=== PATIENT | male | born 1950 | race Hispanic/Latino ===

== ENCOUNTER 2017-09-30 08:32 | Emergency (ER) | payer MEDICARE, BC ==
[2017-09-30 08:38] VITALS: TEMP 98
[2017-09-30 08:49] VITALS: BMI 30.4
[2017-09-30] MEDS ORDERED: Iohexol 240 (50 ml) PO ONE (09:22)
[2017-09-30] MEDS ORDERED: Sodium Chloride 0.9% 1,000 ML IV ONE (09:23)
--- NOTE | 2017-09-30 09:31 | ED PDOC ---
HPI: General Adult Time Seen by Provider: 09/30/17 09:07 Chief Complaint (Nursing): GI Problem History Per: Patient History/Exam Limitations: no limitations Current Symptoms Are (Timing): Still Present Additional Complaint(s): 67 year old male presents to the emergency department with a complaint of a gross bright red blood in stool per rectum after he woke up today, 09/30/2017. States symptoms were mild then and mild now. Reports he had never experienced these symptoms in the past. Denies pain, nausea, vomiting, diarrhea, black stool , chest pain, or shortness of breath. Patient lives at home with his family and does not smoke or drink. PMD: Dr. Nikolay López MD Past Medical History Reviewed: Historical Data, Nursing Documentation, Vital Signs Vital Signs: Last Vital Signs Temp 98 F 09/30/17 08:37 Pulse 70 09/30/17 08:37 Resp BP 151/69 H 09/30/17 08:37 Pulse Ox 96 09/30/17 14:51 - Medical History PMH: Benign Prostatic Hyperplasia, CAD, HTN, Hypercholesterolemia Denies: HIV, Chronic Kidney Disease - Surgical History Surgical History: Appendectomy, Hernia Repair (right inguinal) - Family History Family History: States: Unknown Family Hx - Home Medications Home Medications: Ambulatory Orders Medication Instructions Recorded Acetaminophen with Codeine 1 tab PO Q6 PRN #20 tab 10/14/14 [Tylenol with Codeine No. 3 300 mg-30 mg] Cephalexin [Keflex] 500 mg PO QID #28 cap 10/14/14 Aspirin [Aspirin EC] 81 mg PO DAILY 10/19/14 Atorvastatin [Lipitor] 40 mg PO DAILY 10/19/14 Clopidogrel Bisulfate [Clopidogrel] 75 mg PO DAILY 10/19/14 Dutasteride [Avodart] 0.5 mg PO DAILY 10/19/14 Magnesium Oxide [Mag-Ox 400] 400 mg PO DAILY 10/19/14 Metoprolol Succinate [Metoprolol 100 mg PO BID 10/19/14 Succinate] Olmesartan Medoxomil [Benicar] 20 mg PO BID 10/19/14 Potassium Chloride [Klor-Con] 20 meq PO DAILY 10/19/14 oxyCODONE/Acetaminophen [Percocet 1 ea PO Q6H PRN #15 tab 06/06/16 5/325 mg Tab] Docusate Sodium [Colace] 100 mg PO BID #20 capsule 09/30/17 - Allergies Allergies/Adverse Reactions: Allergies Allergy/AdvReac Type Severity Reaction Status Date / Time No Known Allergies Allergy Verified 06/05/16 23:40 Review of Systems ROS Statement: Except As Marked, All Systems Reviewed And Found Negative (As per HPI, otherwise negative) Cardiovascular: Negative for: Chest Pain Respiratory: Negative for: Shortness of Breath Gastrointestinal: Positive for: Hematochezia. Negative for: Nausea, Vomiting, Diarrhea, Melena, Rectal Pain Physical Exam - Reviewed Nursing Documentation Reviewed: Yes Vital Signs Reviewed: Yes - Physical Exam Appears: Positive for: Non-toxic, No Acute Distress Head Exam: Positive for: NORMAL INSPECTION Skin: Positive for: Normal Color, Warm, Dry Cardiovascular/Chest: Positive for: Regular Rate, Rhythm. Negative for: Murmur Respiratory: Positive for: Normal Breath Sounds. Negative for: Accessory Muscle Use, Wheezing, Respiratory Distress Gastrointestinal/Abdominal: Positive for: Normal Exam, Soft. Negative for: Tenderness Male Genital Exam: Positive for: hernia mass (reducible and tender inguinal hernia ) Rectal: Positive for: Rectal Tone Is: (Normal. Exam revealed bright red blood per rectum. ), Other (Rectal exam completed by me. Chaperoned by nurse. ). Negative for: Normal Exam, Black Stool Extremity: Positive for: Normal ROM. Negative for: Pedal Edema Neurologic/Psych: Positive for: Alert, Oriented (x3) - Laboratory Results Result Diagrams: 09/30/17 09:50 09/30/17 09:50 - ECG O2 Sat by Pulse Oximetry: 96 (RA) Pulse Ox Interpretation: Normal - Progress ED Course And Treament: repeat abd exam reveals no tenderness. given copy of ct scan. advise close f/u likely ruptured hemorrhoid. bleeding stopped/ pt leaves ambulatory and in good spirits. Re-evaluation Time: 14:30 Condition: Improved Medical Decision Making Medical Decision Making: Time: 921 Initial Impression: Rectal bleeding rule out diverticulitis Initial Plan: --EKG --Amylase --CMP --Lipase --CBC w. diff --Iohexol 50 ml PO --Sodium chloride 1L IV --Urinalysis --Abd Pelvis PO & IV Contrast CT --Reevaluation Time: 1421 --Abd CT FINDINGS: LOWER THORAX: Note is made of an elliptical shaped relatively nonenhancing opacity in the right posterior lower lung field that measures approximately the 12.8 x 8.3 mm x 9 mm which is associated with more peripheral irregular curvilinear apparent scarring that extends to the pleural surface posteriorly. This could represent some old postinflammatory sequela. Followup CT scan at 3 month interval recommended to assess stability and exclude the possibility of a primary malignant lesion. No acute consolidation. No evidence of effusion or basilar pneumothorax. Heart size upper limits of normal/borderline enlarged. No significant pericardial effusion. Mild left ventricular hypertrophy. There is a tiny hiatal hernia. LIVER: Liver exhibits normal size measuring approximately 17 cm in CC dimension. Mild diffuse fatty hepatic infiltration. No obvious hepatic mass collection or calcification. GALLBLADDER AND BILE DUCTS: Gallbladder is physiologically distended. No evidence of intraluminal gallbladder calculi. PANCREAS: Unremarkable. No mass. No ductal dilatation. SPLEEN: Unremarkable. No splenomegaly. ADRENALS: Adrenal gland hypertrophy left larger than right. KIDNEYS AND URETERS: Unremarkable. No stone or hydronephrosis. BLADDER: Urinary bladder is physiologically distended. No evidence of intraluminal urinary bladder calculi. REPRODUCTIVE: Prostate gland mildly enlarged measuring approximately 4.9 cm in transverse dimension. APPENDIX: The appendix is not seen with complete certainty however no radiographic evidence to suggest acute appendicitis. Note that prior CT scan indicated history of appendectomy though clinical correlation recommended the the BOWEL: Evaluation of the bowel is limited due to incomplete opacification. The stomach is incompletely distended which presumably accounts for thick- walled appearance however the possibility of a gastritis or other intrinsic/ invasive wall lesion such as gastric carcinoma should probably be excluded. Consider followup GI consultation and colonoscopy. Visualized loops of small bowel exhibit normal contour and caliber. No evidence of acute mechanical small bowel obstruction. There is a large amount of stool seen throughout the colon consistent with fecal retention/constipation. Re- demonstrated are colonic diverticula are present however no radiographic evidence of acute diverticulitis. PERITONEUM: Unremarkable. No fluid collection. No free air. Moderate sized fat ventral wall hernia which contains predominantly fat and a under opacified knuckle of small bowel. . There is a relatively large right-sided inguinal hernia containing a loop of unobstructed small bowel. Small fat containing umbilical hernia. LYMPH NODES: Unremarkable. No enlarged lymph nodes. VASCULATURE: Unremarkable. No aortic aneurysm. Partially calcified atherosclerotic plaque along the abdominal aorta and proximal iliac arteries. BONES: Mild multilevel degenerative spondylosis of the lower thoracic and lumbar spine. OTHER FINDINGS: None. IMPRESSION: There is an elliptical shaped relatively nonenhancing nodular density right lung base that is of uncertain etiology though may represent some postinflammatory sequela. Followup CT scan in 3 months recommended to assess stability exclude underlying mass. There is a moderately large right inguinal hernia containing unobstructed loop of small bowel. Moderate-sized ventral hernia containing mesenteric fat and a knuckle of unobstructed small bowel. Additionally, there is a tiny fat containing umbilical hernia Moderate amount of stool seen throughout the entire colon consistent with fecal retention/constipation. Diverticulosis with no definitive radiographic evidence of acute diverticulitis. Wall thickening of the stomach likely due to nondistention however gastritis or other intrinsic/invasive wall lesion should be excluded ; consider follow-up of GI consultation and colonoscopy. Mild fatty hepatic infiltration. Scribe Attestation: Documented by Yanci Barron, acting as a scribe for Joshua Loving MD. Provider Scribe Attestation: All medical record entries made by the Scribe were at my direction and personally dictated by me. I have reviewed the chart and agree that the record accurately reflects my personal performance of the history, physical exam, medical decision making, and the department course for this patient. I have also personally directed, reviewed, and agree with the discharge instructions and disposition. Disposition - Clinical Impression Clinical Impression: Bleeding internal hemorrhoids, Constipation - Patient ED Disposition Is Patient to be Admitted: No Counseled Patient/Family Regarding: Studies Performed, Diagnosis, Need For Followup - Disposition Referrals: [facility] [Outside] (2 to 3 days) Disposition: Routine/Home Disposition Time: 15:00 Condition: GOOD Prescriptions: Docusate Sodium [Colace] 100 mg PO BID #20 capsule Instructions: Constipation (ED), Rectal Bleeding (ED) Forms: [employer] (Khmer)
[2017-09-30] MEDS ORDERED: Iohexol 240 (50 ml) ONE (09:34)
[2017-09-30 10:04] LABS: BASO % 0.3 % (0.0-2.0); EOS % 0.5 % (0.0-4.0); HEMOGLOBIN 15.3 g/dL (12.0-18.0); LYMPH % 11.8 % (20.0-40.0); MEAN CORPUSCULAR HEMOGLOBIN 30.5 pg (27.0-31.0); MEAN CORPUSCULAR HGB CONC 32.5 g/dL (33.0-37.0); MEAN PLATELET VOLUME 10.5 fl (7.2-11.7); MONO # 0.7 K/uL (0.0-0.8); MONO % 7.9 % (0.0-10.0); NEUT % 79.5 % (50.0-75.0); NRBC % 0.1 % (0.0-0.0); RED CELL DISTRIBUTION WIDTH 14.2 % (11.5-14.5); WHITE BLOOD COUNT 8.9 K/uL (4.8-10.8)
[2017-09-30 10:10] LABS: ALB/GLOB RATIO 1.6 (1.0-2.1); ALBUMIN 4.2 g/dL (3.5-5.0); ALT/SGPT 50 U/L (21-72); AMYLASE 113 U/L (30-110); AST/SGOT 34 U/L (17-59); BLOOD UREA NITROGEN 22 mg/dl (9-20); CALCIUM 9.5 mg/dL (8.4-10.2); GFR AFRICAN-AMERICAN > 60; GFR NON-AFRICAN AMERICAN > 60; LIPASE 251 U/L (23-300)
[2017-09-30] MEDS ORDERED: Iodixanol 320 MG/ML 100 ML BOTTLE IV ONE (11:15)
[2017-09-30] MEDS ORDERED: Sodium Chloride 0.9% 50 ML IV ONE (11:15)
[2017-09-30 11:23] LABS: URINE BILIRUBIN NEGATIVE (NEGATIVE); URINE BLOOD NEGATIVE (NEGATIVE); URINE CLARITY SLIGHTY-CLOUDY (Clear); URINE COLOR YELLOW (YELLOW); URINE GLUCOSE (UA) NEG (Normal); URINE LEUKOCYTE ESTERASE NEG Leu/uL (Negative); URINE NITRATE NEGATIVE (NEGATIVE); URINE PROTEIN NEGATIVE (NEGATIVE); URINE UROBILINOGEN 0.2-1.0 mg/dL (0.2-1.0)
--- NOTE | 2017-09-30 14:23 | CT ---
PROCEDURE: CT abdomen and pelvis dated 09/30/2017. HISTORY: Rectal bleeding and right inguinal hernia COMPARISON: None. TECHNIQUE: Contiguous axial images of the abdomen and pelvis performed following oral and intravenous injection of contrast material. Additional 2 dimensional sagittal and coronal reformats provided This CT exam was performed using one or more of the following dose reduction techniques: Automated exposure control, adjustment of the mA and/or kV according to patient size, and/or use of iterative reconstruction technique. Contrast dose: 95 cc Omnipaque 300 contrast material Radiation dose: Total exam DLP = 1063.94 mGy-cm. FINDINGS: LOWER THORAX: Note is made of an elliptical shaped relatively nonenhancing opacity in the right posterior lower lung field that measures approximately the 12.8 x 8.3 mm x 9 mm which is associated with more peripheral irregular curvilinear apparent scarring that extends to the pleural surface posteriorly. This could represent some old postinflammatory sequela. Followup CT scan at 3 month interval recommended to assess stability and exclude the possibility of a primary malignant lesion. No acute consolidation. No evidence of effusion or basilar pneumothorax. Heart size upper limits of normal/borderline enlarged. No significant pericardial effusion. Mild left ventricular hypertrophy. There is a tiny hiatal hernia. LIVER: Liver exhibits normal size measuring approximately 17 cm in CC dimension. Mild diffuse fatty hepatic infiltration. No obvious hepatic mass collection or calcification. GALLBLADDER AND BILE DUCTS: Gallbladder is physiologically distended. No evidence of intraluminal gallbladder calculi. PANCREAS: Unremarkable. No mass. No ductal dilatation. SPLEEN: Unremarkable. No splenomegaly. ADRENALS: Adrenal gland hypertrophy left larger than right. KIDNEYS AND URETERS: Unremarkable. No stone or hydronephrosis. BLADDER: Urinary bladder is physiologically distended. No evidence of intraluminal urinary bladder calculi. REPRODUCTIVE: Prostate gland mildly enlarged measuring approximately 4.9 cm in transverse dimension. APPENDIX: The appendix is not seen with complete certainty however no radiographic evidence to suggest acute appendicitis. Note that prior CT scan indicated history of appendectomy though clinical correlation recommended the the BOWEL: Evaluation of the bowel is limited due to incomplete opacification. The stomach is incompletely distended which presumably accounts for thick-walled appearance however the possibility of a gastritis or other intrinsic/ invasive wall lesion such as gastric carcinoma should probably be excluded. Consider followup GI consultation and colonoscopy. Visualized loops of small bowel exhibit normal contour and caliber. No evidence of acute mechanical small bowel obstruction. There is a large amount of stool seen throughout the colon consistent with fecal retention/constipation. Re- demonstrated are colonic diverticula are present however no radiographic evidence of acute diverticulitis. PERITONEUM: Unremarkable. No fluid collection. No free air. Moderate sized fat ventral wall hernia which contains predominantly fat and a under opacified knuckle of small bowel. . There is a relatively large right-sided inguinal hernia containing a loop of unobstructed small bowel. Small fat containing umbilical hernia. LYMPH NODES: Unremarkable. No enlarged lymph nodes. VASCULATURE: Unremarkable. No aortic aneurysm. Partially calcified atherosclerotic plaque along the abdominal aorta and proximal iliac arteries. BONES: Mild multilevel degenerative spondylosis of the lower thoracic and lumbar spine. OTHER FINDINGS: None. IMPRESSION: There is an elliptical shaped relatively nonenhancing nodular density right lung base that is of uncertain etiology though may represent some postinflammatory sequela. Followup CT scan in 3 months recommended to assess stability exclude underlying mass. There is a moderately large right inguinal hernia containing unobstructed loop of small bowel. Moderate-sized ventral hernia containing mesenteric fat and a knuckle of unobstructed small bowel. Additionally, there is a tiny fat containing umbilical hernia Moderate amount of stool seen throughout the entire colon consistent with fecal retention/constipation. Diverticulosis with no definitive radiographic evidence of acute diverticulitis. Wall thickening of the stomach likely due to nondistention however gastritis or other intrinsic/invasive wall lesion should be excluded ; consider follow-up of GI consultation and colonoscopy. Mild fatty hepatic infiltration.
[2017-09-30 15:19] VITALS: BP 128/78; PULSE 82; RESP 18; O2SAT 98
== END 2017-09-30 15:18 | disposition home or self-care (01) ==
LOC: H.ER 08:32
DX: K59.00 Constipation, unspecified (principal); K62.5 Hemorrhage of anus and rectum; I10 Essential (primary) hypertension; I25.10 Atherosclerotic heart disease of native coronary artery without angina pectoris; E78.00 Pure hypercholesterolemia, unspecified; Z79.82 Long term (current) use of aspirin; K40.90 Unilateral inguinal hernia, without obstruction or gangrene, not specified as recurrent; K64.8 Other hemorrhoids
CPT/HCPCS: 74177; 80053; 81003; 82150; 83690; 85025; 99283; J7040; Q9966; Q9967